=== PATIENT | female | born 1975 | race Caucasian/White ===

== ENCOUNTER 2019-02-19 23:08 | Emergency (ER) | payer OTHER ==
[~2019-02-19] VITALS: Ht 160 cm; Wt 72.7 kg
[~2019-02-19 23:08] MED LIST: DIVA-78 PO; HALO10 PO; OXCA300T29 PO
[2019-02-19] MEDS ORDERED: RISP4TAB63 PO (23:34)
[2019-02-20 03:41] VITALS: BP 138/71
[2019-02-20] MEDS ORDERED: IBUPROFEN 800 MG TABLET PO ONE (03:45)
== END 2019-02-20 03:44 | disposition home or self-care (01) ==
LOC: EMS 23:09
DX: S93.602A Unspecified sprain of left foot, initial encounter (principal); J45.909 Unspecified asthma, uncomplicated; F32.9 Major depressive disorder, single episode, unspecified; F20.9 Schizophrenia, unspecified; F17.210 Nicotine dependence, cigarettes, uncomplicated; F12.90 Cannabis use, unspecified, uncomplicated; F19.90 Other psychoactive substance use, unspecified, uncomplicated; W18.40XA Slipping, tripping and stumbling without falling, unspecified, initial encounter; Y93.89 Activity, other specified; Y92.89 Other specified places as the place of occurrence of the external cause; Y99.8 Other external cause status

== ENCOUNTER 2020-12-14 08:16 | Emergency (ER) | payer OTHER ==
[~2020-12-14] VITALS: Ht 160 cm; Wt 72.7 kg
[~2020-12-14 08:16] MED LIST changes: +DIVA-112 PO; -DIVA-78 PO; -OXCA300T29 PO; +OXCA300T57 PO; +RISP4TAB63 PO
[2020-12-14 08:20] VITALS: BP 124/64
[2020-12-14] MEDS ORDERED: ALBUTEROL SULFATE HFA 90 MCG/PUFF 8 GM INHALER IH ONE (08:45)
== END 2020-12-14 08:44 | disposition home or self-care (01) ==
LOC: EMS 08:20
DX: J45.909 Unspecified asthma, uncomplicated (principal); Z76.0 Encounter for issue of repeat prescription; Z79.899 Other long term (current) drug therapy; Z87.891 Personal history of nicotine dependence
CPT/HCPCS: 99281; J3535; Z7502